=== PATIENT | female | born 1990 | race African-American/Black ===

== ENCOUNTER 2023-06-05 10:16 | Emergency (ER) | payer MEDICAID, OTHER, SELFPAY ==
[2023-06-05 10:21] VITALS: BP 144/94; PULSE 69; RESP 16; TEMP 36.9; O2SAT 99; BMI 31.2
--- NOTE | 2023-06-05 12:06 | ED_ITS ---
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 Patient states that while she was in [facility] she had a left lower tooth removed. She was experiencing pain several days later and was prescribed amoxicillin. She states that she took the full course of the antibiotics as well as ibuprofen however states that her pain has continued. She states that she has not been seen by dentist since she has moved from [facility] to the [facility]. She denies any fevers, chills, difficulty swallowing, chest pain or shortness of breath. Denies any other complaints or concerns at this time. MD Complaint: tooth pain Teeth map: 2 1. Onset (ago): week(s) Duration: constant Relieving factors: nothing Exacerbating factors: nothing Context: trauma (mechanism) and poor dental care Treatment prior to arrival: none Related Data Previous Rx's Medication Instructions Recorded clindamycin HCl 150 mg capsule 450 mg (3 x 150 mg) PO TID 7 days 06/05/23 #63 caps ibuprofen 600 mg tablet 600 mg PO Q6H PRN pain #45 tabs 06/05/23 oxycodone-acetaminophen 5 mg-325 1 tab PO Q6H PRN pain #7 tabs 06/05/23 mg tablet (Percocet) Allergies Allergy/AdvReac Type Severity Reaction Status Date / Time No Known Allergies Allergy Verified 06/05/23 12:08 Review of Systems 2 Review of Systems: Yes all other systems are reviewed and are negative Constitutional: Constitutional: Reports as per HPI [facility] Social History Social History Alcohol intake: never Smoked in Last 30 Days: No Use of substances other than those prescribed or required for medical reasons: No Advance Directives: No Advance Directives Information Provided: Yes Physical Exam 2 Vital Signs: Vital Signs: Last Vital Signs Temp 98.4 F 06/05/23 10:21 Pulse 69 06/05/23 10:21 Resp 16 06/05/23 10:21 BP 144/94 H 06/05/23 10:21 Pulse Ox 99 06/05/23 10:21 O2 Del Method Room Air 06/05/23 10:21 BMI result Body Mass Index 31.2 Const: General: cooperative, comfortable and no acute distress O rientation/consciousness: patient oriented x3 Limitations: no limitations HEENT: Other: Tooth number 22 is absent, tenderness to palpation in this area as well as tooth number 21. No gingival fluctuance, edema or erythema noted. No drainage. Poor dentition noted throughout. Head: Yes normal to inspection, Yes normocephalic and Yes atraumatic E ars: hearing grossly normal bilaterally General nose exam: Normal external nose present Face and sinus: Yes normal facial exam Mouth: Normal oral and palatal mucosa present, oropharynx normal and moist mucous membranes Throat: Yes posterior oropharynx normal Eyes: General: appearance normal, both eyes and all related structures E yelids: Yes eyelids normal Conjunctivae: conjunctivae normal Sclerae: s clerae normal Pupils: Equal, round and reactive pupils present EOM: EOMs intact bilaterally Neck: Neck: Yes normal visual inspection, Yes full ROM and Yes no lymphadenopathy Lymphatic: no lymphadenopathy noted Chest: Chest palpation & inspection: normal inspection of the chest Resp: Effort & Inspection: normal respiratory effort and able to speak in complete sentences Auscultation: clear to auscultation bilaterally, no crackles, no rales, no rhonchi and no wheezes Cardio: Rate: regular rate Rhythm: regular rhythm Heart sounds: S1 normal heart sound present and S2 normal heart sound present GI: Inspection: Yes normal to inspection Skin: General skin exam: no rashes or lesions noted Trauma: no lacerations or abrasions Wounds: no wounds Neuro: General: patient oriented x3 and moves all extremities Cranial nerves: Yes Equal, round and reactive pupils present Extrem: General: Yes normal to inspection Right upper extremity: normal to inspection Left upper extremity: normal to inspection Right lower extremity: normal to inspection Left lower extremity: normal to inspection Medical Decision Making Medical Decision Making MDM Narrative: 32-year-old [place] Creole speaking female presenting to the emergency department with complaints of left lower dental pain since May 13. She recently had a tooth removed. She has had continued pain despite antibiotics. Patient recently relocated from [facility] to the [facility] and has not had any dental care since her arrival. On examination, vital signs within normal limits, patient has tenderness to palpation over the left dentition, with no evidence of dental abscess. She has poor dentition. Advised patient to continue taking ibuprofen, also prescribed clindamycin given refractory symptoms despite taking amoxicillin. Also given Percocet as needed for severe pain only. Given list of dental clinics in the area to call tomorrow for follow-up. Patient understands and agrees with plan. Patient given return precautions. Patient stable for discharge. Differential Diagnosis Differential Diagnoses: The differential diagnosis associated with the presentation includes Dental decay, dental abscess, dental fracture Discharge Plan Discharge Clinical Impression: Toothache Patient Disposition: Home, Self-Care Instructions: Toothache (ED) Additional Instructions: Please take prescribed antibiotic as directed. Finish the entire course even if your feeling better. Take ibuprofen as directed. Take Percocet only as needed for severe pain. Percocet can cause drowsiness, do not drink alcohol or drive while taking this medication. This medication is addictive, if you have any concerns you may talk to the pharmacist about this or get a partial fill of this medication. We cannot refill this medication from the ER. If any new or worsening symptoms occur including but not limited to worsening pain, fevers or chills difficulty swallowing, please return for re-evaluation. Tanpri pran antibyotik paty sa dirije a. Fini tout mechelle a menm si santiman ou pi byen. Tanpri swiv ak yon nimesh, rele demen ligia yon [place]. Pran ibipwof?n paty yo dirije l. Pran Percocet s?lman paty sa neses? ligia gwo doul?. P?sekisyon ka lak?z hyacinth andrade bw? alk?l oswa kondwi pandan y ap pran medikaman sa a. Renm?d sa a depandans, si ou gen nenp?t enkyetid ou ka pale ak famasyen an yaniv sa a oswa jwenn yon elias holm?l nan medikaman sa a.Nojonas griffin medikaman sa a nan ER la. Si nenp?t ki nouvo oswa yuan pi grav sent?m ki genyen ant men pa limite a doul? yuan pi grav, lafy?v oswa frison difikilte ligia luanne, tanpri retounen ligia re- evalyasyon. Prescriptions: New clindamycin HCl 150 mg capsule 450 mg PO TID 7 Days Qty: 63 0RF ibuprofen 600 mg tablet 600 mg PO Q6H PRN (Reason: pain) Qty: 45 0RF oxycodone-acetaminophen [Percocet] 5-325 mg tablet 1 tab PO Q6H PRN (Reason: pain) Qty: 7 0RF Rx Instructions: Partial Fill upon patient request. Interventions: ED Discharge Assessment Last Done: 06/05/23 12:25 Discharge Date/Time: 06/05/23 13:32
== END 2023-06-05 13:32 | disposition home or self-care (01) ==
PROVIDERS: Emergency Provider Student in an Organized Health Care Education/Training Program
DX: K08.89 Other specified disorders of teeth and supporting structures (principal)
CPT/HCPCS: 99283

== ENCOUNTER 2023-09-26 14:25 | Outpatient (REF) | payer MEDICAID, OTHER, SELFPAY ==
--- NOTE | ~2023-09-26 | XR_ITS ---
EXAMINATION: XR CHEST CLINICAL INFORMATION: Continuation of the middle frontal wall of the thorax. Injury 22 days ago COMPARISON: None available. TECHNIQUE: 2 views of the chest were obtained. 1430 6:00 PM FINDINGS: No significant abnormality is noted involving the heart, lungs, mediastinum, bony thorax or soft tissues. XR/XR chest 2V IMPRESSION: No acute cardiopulmonary disease.
== END 2023-09-26 14:26 | disposition home or self-care (01) ==
LOC: HO.HHCX 14:25
PROVIDERS: Visit Provider Internal Medicine
DX: R35.0 Frequency of micturition (principal); S20.214A Contusion of middle front wall of thorax, initial encounter; X58.XXXA Exposure to other specified factors, initial encounter; Y93.9 Activity, unspecified; Y92.9 Unspecified place or not applicable; Y99.9 Unspecified external cause status
CPT/HCPCS: 71046; 87086